=== PATIENT | female | born 1970 | race Caucasian/White ===

== ENCOUNTER 2019-12-23 09:16 | Day surgery (SDC) | payer MEDICAID ==
[~2019-12-23] VITALS: Ht 167.6 cm; Wt 71.7 kg
[~2019-12-23 09:16] MED LIST: AMBIEN CR12.5 MG PO; GEODON80 MG PO; KLONOPIN 1MG1 MG PO; PAXIL PO; REMERON 15M15 MG/TAB PO; SYMBIAX PO; WELLBUTRIN SR150 M1 PO; ZYPREXA 5MG5 MG PO
[2019-12-23] MEDS ORDERED: EFFEXOR-XR150 MG PO (10:04)
[2019-12-23] MEDS ORDERED: NEXIUM 20MG20 MG PO (10:04)
[2019-12-23] MEDS ORDERED: GEODON80 MG PO (10:04)
[2019-12-23] MEDS ORDERED: AMBIEN 5MG TABLE5 MG PO (10:05)
[2019-12-23] MEDS ORDERED: DITROPAN XL10 MG PO (10:05)
[2019-12-23] MEDS ORDERED: BUSPAR DIVIDOSE15 MG PO (10:05)
[2019-12-23] MEDS ORDERED: LIPITOR20 MG PO (10:05)
[2019-12-23] MEDS ORDERED: LEXAPRO20 MG PO (10:05)
[2019-12-23 10:06] VITALS: BP 142/77; PULSE 75; TEMP 97.4
[2019-12-23] MEDS ORDERED: TRIAMCINOLONE A15 GM TP (10:06)
[2019-12-23] MEDS ORDERED: REQUIP0.25 MG PO (10:06)
[2019-12-23] MEDS ORDERED: NORCO 325 MG-51 TAB PO (11:48)
[2019-12-23 11:52] VITALS: BP 149/99; PULSE 99; TEMP 97.9
--- NOTE | 2019-12-23 11:52 | NUR ---
Patient arrives to [facility] via cart, accompanied by BEVERAGE SERVER Raiza and AUTO JOB ESTIMATOR Jason Sellers. She is sitting up in bed, appears tense. She denies pain, nausea, or need. Monitoring is applied. VSS on room air. She states she has a headache. Her HOB is adjusted and lights dimmed for comfort. She appears more relaxed. She is offered and receives coffee, jello, and pudding. Her operative site is covered by a clean, dry, intact dressing. Call light in reach.
[2019-12-23 12:00] VITALS: BP 130/75; PULSE 79
--- NOTE | 2019-12-23 12:00 | NUR ---
VSS and WNL on room air. She is eating/drinking, tolerating PO well. Denies pain, nausea, or need.
[2019-12-23 12:15] VITALS: BP 136/86; PULSE 82
[2019-12-23 12:30] VITALS: BP 140/78; PULSE 87
--- NOTE | 2019-12-23 12:50 | NUR ---
Patient ambulates to the restroom with steady gait, voids, and returns to room. Discharge criteria has been met. Discharge instructions are discussed. She denies any questions and verbalizes understanding. PIV is removed with catheter intact and hemostasis achieved. She changes to her clothing independently.
--- NOTE | 2019-12-23 13:10 | NUR ---
Patient is escorted to the exit via wheelchair by staff. She is discharged to home with ride at 1310.
== END 2019-12-23 13:10 | disposition home or self-care (01) ==
LOC: SDCO 09:16
DX: N60.81 Other benign mammary dysplasias of right breast (principal); E78.00 Pure hypercholesterolemia, unspecified; K21.9 Gastro-esophageal reflux disease without esophagitis; F32.9 Major depressive disorder, single episode, unspecified; F20.9 Schizophrenia, unspecified; F41.9 Anxiety disorder, unspecified; Z90.710 Acquired absence of both cervix and uterus; F17.210 Nicotine dependence, cigarettes, uncomplicated; Z88.5 Allergy status to narcotic agent; Z80.1 Family history of malignant neoplasm of trachea, bronchus and lung; Z83.3 Family history of diabetes mellitus
CPT/HCPCS: J0690; J2704; J3010; J7120

== ENCOUNTER 2022-09-10 14:54 | Emergency (ER) | payer MEDICAID ==
[~2022-09-10] VITALS: Ht 167.6 cm; Wt 70.5 kg
[~2022-09-10 14:54] MED LIST changes: +AMBIEN 5MG TABLE5 MG PO; +BUSPAR DIVIDOSE15 MG PO; +DITROPAN XL10 MG PO; +EFFEXOR-XR150 MG PO; +LEXAPRO20 MG PO; +LIPITOR20 MG PO; +NEXIUM 20MG20 MG PO; +NORCO 325 MG-51 TAB PO; +REQUIP0.25 MG PO; +TRIAMCINOLONE A15 GM TP
[2022-09-10 14:59] VITALS: BP 130/80; PULSE 68; TEMP 98
== END 2022-09-10 15:23 | disposition home or self-care (01) ==
LOC: COL.ER 14:54
DX: S90.812A Abrasion, left foot, initial encounter (principal); F17.200 Nicotine dependence, unspecified, uncomplicated; W53.01XA Bitten by mouse, initial encounter; Y92.009 Unspecified place in unspecified non-institutional (private) residence as the place of occurrence of the external cause